=== PATIENT | male | born 1965 | race Hispanic/Latino ===

== ENCOUNTER 2018-12-21 19:30 | Emergency (ER) | payer OTHER ==
[2018-12-21] MEDS ORDERED: ONDANSETRON HCL 4 MG/2 ML VIAL ONE (19:45)
[2018-12-21 20:08] LABS: BASOPHILS % (AUTO) 0.8 % (0.0-5.0); EOSINOPHILS % (AUTO) 2.8 % (0.0-8.0); HEMATOCRIT 43.3 % (42-54); LYMPHOCYTES % (AUTO) 31.3 % (21.0-51.0); MEAN CORPUSCULAR HEMOGLOBIN 30.8 pg (27.0-33.0); MEAN CORPUSCULAR HGB CONC 34.8 g/dL (32.0-36.0); MEAN CORPUSCULAR VOLUME 88.6 fL (79-99); MONOCYTES % (AUTO) 8.2 % (3.0-13.0); NEUTROPHILS % (AUTO) 56.9 % (40.0-77.0); PLATELET COUNT (AUTO) 192 K/uL (130-400); RED BLOOD CELL COUNT(AUTO) 4.89 MIL/uL (4.50-6.20); RED CELL DISTRIBUTION WIDTH 12.7 % (11.0-15.5)
[2018-12-21 20:11] LABS: APPEARANCE,URINE Clear (CLEAR); BILIRUBIN,URINE Negative (NEGATIVE); COLOR,URINE Yellow (YELLOW); GLUCOSE, URINE (UA) Negative (NEGATIVE); KETONES,URINE Negative (NEGATIVE); LEUKOCYTE ESTERASE ,URINE Negative (NEGATIVE); NITRATE,URINE Negative (NEGATIVE); OCCULT BLOOD,URINE Negative (NEGATIVE); PH,URINE 6.5 (5.0-8.0); PROTEIN,URINE Negative (NEGATIVE)
[2018-12-21 20:18] LABS: CREATININE 0.9 mg/dL (0.5-1.5); POTASSIUM 3.8 mmol/L (3.5-5.1)
[2018-12-21 20:23] LABS: BILIRUBIN,TOTAL 0.5 mg/dL (0.2-1.0); TOTAL PROTEIN, SERUM 7.2 g/dL (6.0-8.3)
[2018-12-21] MEDS ORDERED: HYOSCYAMINE SULFATE 0.125 MG TAB.SUBL SL ONE (20:38)
[2018-12-21] MEDS ORDERED: FAMOTIDINE/PF 20 MG/2 ML VIAL IV ONE (20:38)
== END 2018-12-21 22:55 | disposition home or self-care (01) ==
LOC: EDH 19:30
DX: K76.89 Other specified diseases of liver (principal); R11.0 Nausea; K59.00 Constipation, unspecified; E11.9 Type 2 diabetes mellitus without complications; I10 Essential (primary) hypertension
CPT/HCPCS: 36415; 76700; 80053; 81003; 83690; 85025; 93005; 96374; 96375; 99285; J2405; J3490

== ENCOUNTER 2019-10-31 13:16 | Emergency (ER) | payer OTHER ==
[2019-10-31] MEDS ORDERED: PANTOPRAZOLE 40 MG/VIAL IVP ONE (13:17)
[2019-10-31 13:59] LABS: BASOPHILS % (AUTO) 0.4 % (0.0-5.0); EOSINOPHILS % (AUTO) 2.9 % (0.0-8.0); HEMATOCRIT 43.4 % (42-54); LYMPHOCYTES % (AUTO) 26.8 % (21.0-51.0); MEAN CORPUSCULAR HEMOGLOBIN 29.5 pg (27.0-33.0); MEAN CORPUSCULAR HGB CONC 34.8 g/dL (32.0-36.0); MEAN CORPUSCULAR VOLUME 84.9 fL (79-99); NEUTROPHILS % (AUTO) 61.7 % (40.0-77.0); PLATELET COUNT (AUTO) 222 K/uL (130-400); RED BLOOD CELL COUNT(AUTO) 5.11 MIL/uL (4.50-6.20); RED CELL DISTRIBUTION WIDTH 11.9 % (11.0-15.5); WHITE BLOOD COUNT (AUTO) 8.6 K/uL (4.8-10.8)
[2019-10-31 14:16] LABS: INR 0.99 (0.85-1.15); PARTIAL THROMBOPLASTIN TIME 25.3 SEC (26.3-35.5); PROTHROMBIN TIME 10.7 SEC (9.6-11.6)
[2019-10-31 14:18] LABS: ALBUMIN 4.1 g/dL (3.5-5.0); BILIRUBIN,TOTAL 0.7 mg/dL (0.2-1.0); CREATININE 1.1 mg/dL (0.5-1.5); POTASSIUM 3.8 mmol/L (3.5-5.1); TOTAL PROTEIN, SERUM 7.2 g/dL (6.0-8.3)
[2019-10-31] MEDS ORDERED: ASPIRIN 325 MG TABLET ONE (15:15)
== END 2019-10-31 15:56 | disposition home or self-care (01) ==
LOC: EDH 13:16
DX: T63.331A Toxic effect of venom of brown recluse spider, accidental (unintentional), initial encounter (principal); S61.251A Open bite of left index finger without damage to nail, initial encounter; R07.89 Other chest pain; E11.9 Type 2 diabetes mellitus without complications; I10 Essential (primary) hypertension; Y93.89 Activity, other specified; Y99.8 Other external cause status; Y92.89 Other specified places as the place of occurrence of the external cause
CPT/HCPCS: 36415; 71045; 80053; 82550; 84484; 85025; 85610; 85651; 85730; 93005; 96374; 99285; C9113

== ENCOUNTER 2021-09-16 16:48 | Emergency (ER) | payer OTHER ==
[~2021-09-16] VITALS: Ht 175.3 cm; Wt 111.1 kg
[2021-09-16 16:49] VITALS: BP 169/90
[2021-09-16] MEDS ORDERED: HYDR-3421 PO (17:24)
[2021-09-16] MEDS ORDERED: HYDROXYZINE 25 MG TABLET PO ONE (17:30)
== END 2021-09-16 18:06 | disposition home or self-care (01) ==
LOC: EDH 16:48
DX: L30.9 Dermatitis, unspecified (principal); R03.0 Elevated blood-pressure reading, without diagnosis of hypertension; E11.9 Type 2 diabetes mellitus without complications; E78.00 Pure hypercholesterolemia, unspecified; E66.9 Obesity, unspecified; I10 Essential (primary) hypertension; Z68.36 Body mass index [BMI] 36.0-36.9, adult

== ENCOUNTER 2021-11-10 22:51 | Emergency (ER) | payer OTHER ==
[~2021-11-10] VITALS: Ht 175.3 cm; Wt 109.3 kg
[~2021-11-10 22:51] MED LIST: HYDR-3421 PO
[2021-11-10 22:55] VITALS: BP 146/79
[2021-11-10] MEDS ORDERED: SULFAMETHOX-TMP DS 800/160 TAB ONE (23:41)
[2021-11-10] MEDS ORDERED: SULF1TAB42 PO (23:42)
[2021-11-11] MEDS ORDERED: SULFAMETHOX-TMP DS 800/160 TAB PO SCH
== END 2021-11-10 23:50 | disposition home or self-care (01) ==
LOC: EDH 22:51
DX: L03.211 Cellulitis of face (principal); E11.9 Type 2 diabetes mellitus without complications; F41.9 Anxiety disorder, unspecified; I10 Essential (primary) hypertension

== ENCOUNTER 2021-11-12 10:21 | Emergency (ER) | payer OTHER ==
[~2021-11-12] VITALS: Ht 175.3 cm; Wt 110.7 kg
[~2021-11-12 10:21] MED LIST changes: +SULF1TAB42 PO
[2021-11-12 11:25] LABS: BASOPHILS % (AUTO) 0.2 % (0.0-5.0); EOSINOPHILS % (AUTO) 1.4 % (0.0-8.0); HEMATOCRIT 42.4 % (42-54); LYMPHOCYTES % (AUTO) 15.8 % (21.0-51.0); MEAN CORPUSCULAR HEMOGLOBIN 29.9 pg (27.0-33.0); MEAN CORPUSCULAR HGB CONC 34.7 g/dL (32.0-36.0); MEAN CORPUSCULAR VOLUME 86.4 fL (79-99); MONOCYTES % (AUTO) 9.4 % (3.0-13.0); NEUTROPHILS % (AUTO) 72.9 % (40.0-77.0); PLATELET COUNT (AUTO) 232 K/uL (130-400); RED BLOOD CELL COUNT(AUTO) 4.91 MIL/uL (4.50-6.20); WHITE BLOOD COUNT (AUTO) 12.7 K/uL (4.8-10.8)
[2021-11-12 11:42] LABS: ALBUMIN 3.7 g/dL (3.5-5.0); CREATININE 1.1 mg/dL (0.5-1.5); POTASSIUM 4.7 mmol/L (3.5-5.1); TOTAL PROTEIN, SERUM 7.1 g/dL (6.0-8.3)
[2021-11-12] MEDS ORDERED: CLINDAMYCIN IVPB 600MG/50ML 50 ML IV SCH ×2 (12:00→22:00)
[2021-11-12] MEDS ORDERED: KETOROLAC 15MG/ML VIAL (15MG/ML) IV ONE (14:30)
[2021-11-12] MEDS ORDERED: MUPI22O TP (17:10)
[2021-11-12 17:51] VITALS: BP 122/76
== END 2021-11-12 17:52 | disposition home or self-care (01) ==
LOC: EDH 10:21
DX: J34.0 Abscess, furuncle and carbuncle of nose (principal); E11.9 Type 2 diabetes mellitus without complications; F41.9 Anxiety disorder, unspecified; I10 Essential (primary) hypertension; Z79.899 Other long term (current) drug therapy
CPT/HCPCS: 99284; 70450; 96365; 96366; 96375; 80053; 85025; 36415; 70486; J1885; J3490

== ENCOUNTER 2021-12-08 21:43 | Emergency (ER) | payer OTHER ==
[~2021-12-08] VITALS: Ht 175.3 cm; Wt 109.3 kg
[~2021-12-08 21:43] MED LIST changes: +MUPI22O TP
[2021-12-08] MEDS ORDERED: OSEL75 PO (22:43)
[2021-12-08 22:45] VITALS: BP 148/90
[2021-12-08 22:47] LABS: BASOPHILS % (AUTO) 0.1 % (0.0-5.0); EOSINOPHILS % (AUTO) 0.9 % (0.0-8.0); HEMATOCRIT 40.8 % (42-54); LYMPHOCYTES % (AUTO) 18.7 % (21.0-51.0); MEAN CORPUSCULAR HEMOGLOBIN 29.9 pg (27.0-33.0); MEAN CORPUSCULAR VOLUME 85.4 fL (79-99); MONOCYTES % (AUTO) 9.1 % (3.0-13.0); PLATELET COUNT (AUTO) 151 K/uL (130-400); RED BLOOD CELL COUNT(AUTO) 4.78 MIL/uL (4.50-6.20); RED CELL DISTRIBUTION WIDTH 12.2 % (11.0-15.5); WHITE BLOOD COUNT (AUTO) 8.7 K/uL (4.8-10.8)
[2021-12-08 23:00] LABS: POTASSIUM 4.5 mmol/L (3.5-5.1)
[2021-12-08 23:04] LABS: ALBUMIN 3.9 g/dL (3.5-5.0)
== END 2021-12-08 22:54 | disposition home or self-care (01) ==
LOC: EDH 21:43
DX: J11.1 Influenza due to unidentified influenza virus with other respiratory manifestations (principal); E11.9 Type 2 diabetes mellitus without complications; I10 Essential (primary) hypertension; E78.00 Pure hypercholesterolemia, unspecified
CPT/HCPCS: 36415; 71045; 80053; 83605; 84484; 85025

== ENCOUNTER 2023-01-30 14:04 | Emergency (ER) | payer BC, OTHER ==
[~2023-01-30] VITALS: Ht 175.3 cm; Wt 108.4 kg
[~2023-01-30 14:04] MED LIST changes: +OSEL75 PO
[2023-01-30 16:00] LABS: BASOPHILS # (AUTO) 0.03 K/uL (0.00-0.20); BASOPHILS % (AUTO) 0.2 % (0.0-5.0); EOSINOPHILS # (AUTO) 0.13 K/uL (0.00-0.70); HEMATOCRIT 43.8 % (42-54); IMMATURE GRANULOCYTE ABSOLUTE 0.05 K/uL (0-1); LYMPHOCYTES # (AUTO) 3.7 K/uL (1.0-4.8); LYMPHOCYTES % (AUTO) 29.2 % (21.0-51.0); MEAN CORPUSCULAR HEMOGLOBIN 29.9 pg (27.0-33.0); MEAN CORPUSCULAR HGB CONC 35.6 g/dL (32.0-36.0); MEAN CORPUSCULAR VOLUME 84.1 fL (79-99); NEUTROPHILS # (AUTO) 7.8 K/uL (1.8-7.7); NEUTROPHILS % (AUTO) 61.2 % (40.0-77.0); PLATELET COUNT (AUTO) 228 K/uL (130-400); RED BLOOD CELL COUNT(AUTO) 5.21 MIL/uL (4.50-6.20); RED CELL DISTRIBUTION WIDTH 11.9 % (11.0-15.5); WHITE BLOOD COUNT (AUTO) 12.7 K/uL (4.8-10.8)
[2023-01-30 16:13] LABS: CREATININE 0.9 mg/dL (0.5-1.5); POTASSIUM 3.6 mmol/L (3.5-5.1)
[2023-01-30 16:24] LABS: ALBUMIN 3.7 g/dL (3.5-5.0); BILIRUBIN,TOTAL 0.3 mg/dL (0.2-1.0); TOTAL PROTEIN, SERUM 7.1 g/dL (6.0-8.3)
[2023-01-30] MEDS ORDERED: CLONIDINE HCL 0.1 MG TABLET PO ONE (16:30)
[2023-01-30] MEDS ORDERED: 0.9%NACL 1000ML 1,000 ML IV ONE (16:30)
[2023-01-30] MEDS ORDERED: CLON0.1T2 PO (18:19)
[2023-01-30 18:30] VITALS: BP 129/80; PULSE 67; RESP 18; O2SAT 99
== END 2023-01-30 18:29 | disposition home or self-care (01) ==
LOC: EDH 14:04
DX: I10 Essential (primary) hypertension (principal); E11.65 Type 2 diabetes mellitus with hyperglycemia; E78.00 Pure hypercholesterolemia, unspecified; Z79.899 Other long term (current) drug therapy
CPT/HCPCS: 99284; 96360; 84484; 80053; 85025; 82948 ×2; 36415; 93005; J7030

== ENCOUNTER 2023-02-27 17:44 | Emergency (ER) | payer BC ==
[~2023-02-27] VITALS: Ht 175.3 cm; Wt 109.8 kg
[~2023-02-27 17:44] MED LIST changes: +CLON0.1T2 PO
[2023-02-27 21:36] LABS: BASOPHILS # (AUTO) 0.05 K/uL (0.00-0.20); BASOPHILS % (AUTO) 0.5 % (0.0-5.0); EOSINOPHILS # (AUTO) 0.24 K/uL (0.00-0.70); EOSINOPHILS % (AUTO) 2.3 % (0.0-8.0); HEMATOCRIT 43.6 % (42-54); IMMATURE GRANULOCYTE ABSOLUTE 0.03 K/uL (0-1); LYMPHOCYTES # (AUTO) 2.9 K/uL (1.0-4.8); LYMPHOCYTES % (AUTO) 27.7 % (21.0-51.0); MEAN CORPUSCULAR HGB CONC 34.9 g/dL (32.0-36.0); MONOCYTES % (AUTO) 9.3 % (3.0-13.0); NEUTROPHILS # (AUTO) 6.3 K/uL (1.8-7.7); NEUTROPHILS % (AUTO) 59.9 % (40.0-77.0); PLATELET COUNT (AUTO) 240 K/uL (130-400); RED BLOOD CELL COUNT(AUTO) 5.07 MIL/uL (4.50-6.20); RED CELL DISTRIBUTION WIDTH 12.1 % (11.0-15.5); WHITE BLOOD COUNT (AUTO) 10.4 K/uL (4.8-10.8)
[2023-02-27 21:45] LABS: CREATININE 0.9 mg/dL (0.5-1.5); POTASSIUM 3.8 mmol/L (3.5-5.1)
[2023-02-27 21:48] LABS: BILIRUBIN,TOTAL 0.3 mg/dL (0.2-1.0); TOTAL PROTEIN, SERUM 7.3 g/dL (6.0-8.3)
[2023-02-28 00:40] VITALS: BP 148/92; PULSE 68; RESP 16; O2SAT 100
== END 2023-02-28 01:00 | disposition home or self-care (01) ==
LOC: EDH 17:44
DX: R59.1 Generalized enlarged lymph nodes (principal); E11.9 Type 2 diabetes mellitus without complications; I10 Essential (primary) hypertension
CPT/HCPCS: 36415; 71045; 80053; 85025

== ENCOUNTER 2023-08-24 00:06 | Emergency (ER) | payer BC ==
[~2023-08-24] VITALS: Ht 175.3 cm; Wt 106.6 kg
[2023-08-24 01:10] LABS: BASOPHILS # (AUTO) 0.03 K/uL (0.00-0.20); BASOPHILS % (AUTO) 0.3 % (0.0-5.0); EOSINOPHILS % (AUTO) 1.7 % (0.0-8.0); HEMATOCRIT 41.3 % (42-54); IMMATURE GRANULOCYTE ABSOLUTE 0.04 K/uL (0-1); LYMPHOCYTES # (AUTO) 2.8 K/uL (1.0-4.8); LYMPHOCYTES % (AUTO) 23.3 % (21.0-51.0); MEAN CORPUSCULAR HEMOGLOBIN 31.7 pg (27.0-33.0); MEAN CORPUSCULAR HGB CONC 35.8 g/dL (32.0-36.0); MEAN CORPUSCULAR VOLUME 88.4 fL (79-99); MONOCYTES # (AUTO) 1.1 K/uL (0.1-1.0); MONOCYTES % (AUTO) 8.8 % (3.0-13.0); NEUTROPHILS # (AUTO) 7.9 K/uL (1.8-7.7); NEUTROPHILS % (AUTO) 65.6 % (40.0-77.0); PLATELET COUNT (AUTO) 203 K/uL (130-400); RED BLOOD CELL COUNT(AUTO) 4.67 MIL/uL (4.50-6.20); RED CELL DISTRIBUTION WIDTH 12.3 % (11.0-15.5)
[2023-08-24 01:17] LABS: CREATININE 1.5 mg/dL (0.5-1.3); POTASSIUM 3.5 mmol/L (3.5-5.1)
[2023-08-24] MEDS ORDERED: PHEN51CR14 RC (02:00)
[2023-08-24] MEDS ORDERED: PRAM56OI TP (02:00)
[2023-08-24] MEDS ORDERED: HEMORRHOIDAL OINTMENT 57 GM CREAM.GM. RC PRN (02:00)
[2023-08-24] MEDS: OXYCODONE/ACETAMIN 5/325MG TAB PO ONE (02:11)
[2023-08-24] MEDS: 0.9% NACL 250ML 250 ML IV ONE (02:11)
[2023-08-24] MEDS: HYDROCORTISONE 25 MG SUPPOSITORY PR SCH (02:33)
[2023-08-24 02:34] VITALS: BP 104/62; PULSE 75; RESP 18; O2SAT 95
== END 2023-08-24 03:22 | disposition home or self-care (01) ==
LOC: EDH 00:06
DX: K62.5 Hemorrhage of anus and rectum (principal); I10 Essential (primary) hypertension; N17.9 Acute kidney failure, unspecified; E66.9 Obesity, unspecified; E11.9 Type 2 diabetes mellitus without complications; Z79.899 Other long term (current) drug therapy; Z98.890 Other specified postprocedural states
CPT/HCPCS: 99283; 80048; 85025; 36415; J7050

== ENCOUNTER 2023-10-09 18:14 | Emergency (ER) | payer BC ==
[~2023-10-09] VITALS: Ht 175.3 cm; Wt 104.8 kg
[~2023-10-09 18:14] MED LIST changes: +PHEN51CR14 RC; +PRAM56OI TP
[2023-10-09] MEDS: KETOROLAC 60 MG VIAL (30MG/ML) IM ONE (20:08)
[2023-10-09 20:09] VITALS: TEMP 97.9
[2023-10-09] MEDS: ACETAMINOPHEN 500 MG TABLET PO ONE (20:09)
[2023-10-09] MEDS: CYCLOBENZAPRINE HCL 10 MG TABLET PO ONE (20:10)
[2023-10-09] MEDS ORDERED: IBUP-2077 PO (20:17)
[2023-10-09] MEDS ORDERED: CYCL-309 PO (20:17)
[2023-10-09 20:54] VITALS: BP 129/74; PULSE 65; RESP 17; O2SAT 98
== END 2023-10-09 21:01 | disposition home or self-care (01) ==
LOC: EDH 18:14
DX: S39.012A Strain of muscle, fascia and tendon of lower back, initial encounter (principal); E11.9 Type 2 diabetes mellitus without complications; I10 Essential (primary) hypertension; X58.XXXA Exposure to other specified factors, initial encounter; Y93.89 Activity, other specified; Y92.89 Other specified places as the place of occurrence of the external cause; Y99.8 Other external cause status
CPT/HCPCS: 99284; 72100; 96372; J1885